=== PATIENT | female | born 1960 | race Two or more races ===

== ENCOUNTER 2020-07-08 17:00 | Emergency (ER) | payer MEDICAID ==
[~2020-07-08] VITALS: Ht 157.5 cm; Wt 58.2 kg
[~2020-07-08 17:00] MED LIST: ATEN25TA PO; HYDR12.517 PO
--- NOTE | 2020-07-08 17:30 | NUR ---
Pt presents with swollen right cheeck, painful, red, swollen right upper gum.
[2020-07-08 18:05] VITALS: BP 155/105
--- NOTE | 2020-07-08 18:08 | NUR ---
Pt provided with dentist referral list and prescriptions. Pt agrees with and understands discharge plan and instructions, verbalizes that she will take prescriptions and follow up with dentist
== END 2020-07-08 18:11 | disposition home or self-care (01) ==
LOC: ED 17:30
DX: K02.9 Dental caries, unspecified (principal); K08.89 Other specified disorders of teeth and supporting structures; I10 Essential (primary) hypertension; F17.200 Nicotine dependence, unspecified, uncomplicated
CPT/HCPCS: 99283